=== PATIENT | female | born 1940 | race Caucasian/White ===

== ENCOUNTER 2020-09-08 12:16 | Inpatient (IN) | payer MEDICARE, OTHER ==
[~2020-09-08] VITALS: Ht 165.1 cm; Wt 86.2 kg
[~2020-09-08 12:16] MED LIST: CALCIUM ZINC MAG PO; CRESTOR20 MG PO; HAWTHORN PO; IBUPROFEN200 MG PO; KELP1 EACH PO; LISINOPRIL2.5 MG PO; LOPRESSOR 25 MG25 MG PO
[2020-09-08 12:50] LABS: HEMOGLOBIN 12.1 gm/dl (12.3-15.3); RED BLOOD COUNT 4.16 M/UL (4.00-5.10); WHITE BLOOD COUNT 10.1 K/UL (4.5-11.0)
[2020-09-08] MEDS ORDERED: CATAPRES 0.1MG0.1 MG PO (14:24)
[2020-09-08] MEDS ORDERED: ZESTRIL 40 MG T40 MG PO (14:25)
[2020-09-08] MEDS ORDERED: ASPIRIN325 MG PO (14:25)
[2020-09-08] MEDS ORDERED: LASIX20 MG PO (14:33)
[2020-09-08] MEDS ORDERED: ADULT LOW DOSE81 MG PO (15:12)
[2020-09-09 02:11] LABS: HEMOGLOBIN 10.6 gm/dl (12.3-15.3); WHITE BLOOD COUNT 9.8 K/UL (4.5-11.0)
[2020-09-09 02:43] LABS: RED BLOOD COUNT 3.62 M/UL (4.00-5.10)
[2020-09-09 12:38] LABS: HEMOGLOBIN 8.6 gm/dl (12.3-15.3); RED BLOOD COUNT 2.95 M/UL (4.00-5.10); WHITE BLOOD COUNT 24.8 K/UL (4.5-11.0)
[2020-09-10 02:19] LABS: HEMOGLOBIN 8.6 gm/dl (12.3-15.3); RED BLOOD COUNT 2.97 M/UL (4.00-5.10); WHITE BLOOD COUNT 21.2 K/UL (4.5-11.0)
--- NOTE | 2020-09-10 22:30 | NUR ---
PT RESTING QUIETLY . NO S/S DISTRESS OR DISCOMFORT. AWAKENS EASILY AND TOOK SIPS OF WATER. SON SLEEPING IN ROOM.
--- NOTE | 2020-09-11 02:13 | NUR ---
RESTLESS AND AGITATED. ATTEMPTING TO GET UNDRESSED. ATIVAN 1 MG IV ADMINITERED PRESCRIBED.
--- NOTE | 2020-09-11 02:37 | NUR ---
critical cardiac lab results received. patient had received heart cath previous date. cardiac markers remain elevated but are trending down. md choudhary.
[2020-09-11 05:39] LABS: RED BLOOD COUNT 2.06 M/UL (4.00-5.10)
[2020-09-11 08:02] LABS: WHITE BLOOD COUNT 13.7 K/UL (4.5-11.0)
[2020-09-11 13:36] LABS: HEMOGLOBIN 7.6 gm/dl (12.3-15.3)
--- NOTE | 2020-09-11 22:14 | NUR ---
patient restless and agitated. pulling at gown . she is unable to express what the issue is. when ask about pain she doesnt verbally respond. ativan 1 mg iv administered.
[2020-09-12 05:58] LABS: RED BLOOD COUNT 2.31 M/UL (4.00-5.10); WHITE BLOOD COUNT 13.4 K/UL (4.5-11.0)
[2020-09-12 05:59] LABS: HEMOGLOBIN 6.9 gm/dl (12.3-15.3)
[2020-09-12 15:07] LABS: HEMOGLOBIN 8.1 gm/dl (12.3-15.3)
[2020-09-13 05:53] LABS: HEMOGLOBIN 7.2 gm/dl (12.3-15.3); RED BLOOD COUNT 2.36 M/UL (4.00-5.10)
[2020-09-13 05:58] LABS: WHITE BLOOD COUNT 7.8 K/UL (4.5-11.0)
[2020-09-14 02:54] LABS: HEMOGLOBIN 8.2 gm/dl (12.3-15.3); WHITE BLOOD COUNT 8.5 K/UL (4.5-11.0)
[2020-09-14 02:58] LABS: RED BLOOD COUNT 2.78 M/UL (4.00-5.10)
[2020-09-15 03:06] LABS: HEMOGLOBIN 8.5 gm/dl (12.3-15.3); RED BLOOD COUNT 2.86 M/UL (4.00-5.10); WHITE BLOOD COUNT 8.9 K/UL (4.5-11.0)
[2020-09-16 03:39] LABS: WHITE BLOOD COUNT 11.2 K/UL (4.5-11.0)
[2020-09-17 05:38] LABS: HEMOGLOBIN 9.8 gm/dl (12.3-15.3); RED BLOOD COUNT 3.24 M/UL (4.00-5.10); WHITE BLOOD COUNT 12.7 K/UL (4.5-11.0)
[2020-09-17 06:00] LABS: BUN/CREATININE RATIO 35 (0-10)
[2020-09-18 06:48] LABS: HEMOGLOBIN 9.3 gm/dl (12.3-15.3); RED BLOOD COUNT 3.12 M/UL (4.00-5.10); WHITE BLOOD COUNT 10.6 K/UL (4.5-11.0)
[2020-09-19] MEDS ORDERED: LOPRESSOR 50 MG50 MG PO (14:34)
[2020-09-19] MEDS ORDERED: ELIQUIS2.5 MG PO (14:34)
[2020-09-19] MEDS ORDERED: HYDROCODON-ACE1 EAC2 PO (14:34)
[2020-09-19] MEDS ORDERED: ATORVASTATIN CA20 MG PO (14:34)
[2020-09-19] MEDS ORDERED: CLOPIDOGREL75 MG PO (14:34)
== END 2020-09-20 11:10 | DRG 480 ==
LOC: ER1 12:16 → CDU 14:00 → M/S 14:00 → CCU 14:00 → M/S 15:00 → CCU 09-09 12:51 → M/S 09-17 20:25
PROVIDERS: Emergency Medicine; Internal Medicine; Internal Medicine Cardiovascular Disease; Nurse Practitioner; Orthopaedic Surgery; Physician Assistant; ADMIT Internal Medicine
PROC: 0QS704Z Reposition Left Upper Femur with Internal Fixation Device, Open Approach (ICD-10-PCS; principal; 2020-09-09 08:46)
PROC: 027034Z Dilation of Coronary Artery, One Artery with Drug-eluting Intraluminal Device, Percutaneous Approach (ICD-10-PCS; 2020-09-10)
PROC: 4A023N7 Measurement of Cardiac Sampling and Pressure, Left Heart, Percutaneous Approach (ICD-10-PCS; 2020-09-10)
PROC: B2111ZZ Fluoroscopy of Multiple Coronary Arteries using Low Osmolar Contrast (ICD-10-PCS; 2020-09-10)
PROC: B24BZZ4 Ultrasonography of Heart with Aorta, Transesophageal (ICD-10-PCS; 2020-09-10)
PROC: 30233N1 Transfusion of Nonautologous Red Blood Cells into Peripheral Vein, Percutaneous Approach (ICD-10-PCS; 2020-09-12)
PROC: 05HM33Z Insertion of Infusion Device into Right Internal Jugular Vein, Percutaneous Approach (ICD-10-PCS; 2020-09-12)
PROC: B543ZZA Ultrasonography of Right Jugular Veins, Guidance (ICD-10-PCS; 2020-09-12)
DX: S72.122A Displaced fracture of lesser trochanter of left femur, initial encounter for closed fracture (principal); I21.4 Non-ST elevation (NSTEMI) myocardial infarction; R57.1 Hypovolemic shock; D62 Acute posthemorrhagic anemia; I13.0 Hypertensive heart and chronic kidney disease with heart failure and stage 1 through stage 4 chronic kidney disease, or unspecified chronic kidney disease; Z20.822 Contact with and (suspected) exposure to COVID-19; I47.1 Supraventricular tachycardia; E87.0 Hyperosmolality and hypernatremia; I50.32 Chronic diastolic (congestive) heart failure; N17.9 Acute kidney failure, unspecified; E78.5 Hyperlipidemia, unspecified; I48.0 Paroxysmal atrial fibrillation; I95.9 Hypotension, unspecified; N18.30 Chronic kidney disease, stage 3 unspecified; I44.7 Left bundle-branch block, unspecified; E87.8 Other disorders of electrolyte and fluid balance, not elsewhere classified; D63.1 Anemia in chronic kidney disease; W01.0XXA Fall on same level from slipping, tripping and stumbling without subsequent striking against object, initial encounter; Y92.091 Bathroom in other non-institutional residence as the place of occurrence of the external cause; Z90.710 Acquired absence of both cervix and uterus; Z90.49 Acquired absence of other specified parts of digestive tract; Z82.49 Family history of ischemic heart disease and other diseases of the circulatory system; Z87.891 Personal history of nicotine dependence; Z79.82 Long term (current) use of aspirin; Z79.01 Long term (current) use of anticoagulants; Z87.81 Personal history of (healed) traumatic fracture
CPT/HCPCS: ECHO; 36415; 36430; 36556; 51702; 71045; 73502; 73552; 74018; 76000; 80048; 80053; 81001; 82140; 82550; 82553; 83874; 83880; 84484; 85014; 85018; 85025; 85347; 85610; 85730; 86850; 86900; 86901; 86920; 90471; 90715; 93005; 93306; 94640; 94664; 94760; 96374; 96375; 96376; 97110; 97110-GP-CQ; 97162; 97166; 97530-GP-CQ; 99285; A6212; C1713; C1725; C1751; C1769; C1874; C1887; C1894; C9600; J0461; J0690; J1100; J1160; J1170; J1644; J1940; J2001; J2060; J2250; J2270; J2370; J2405; J2704; J2795; J3010; J3475; J7030; J7040; J7050; J7120; P9016; P9045; Q9965; U0002